=== PATIENT | male | born 1960 | race Caucasian/White ===

== ENCOUNTER 2017-06-19 12:31 | Emergency (ER) | payer OTHER ==
[2017-06-19] MEDS ORDERED: Ketorolac INJ* 30 MG/ML 1 ML VIAL IV ONE (13:24)
[2017-06-19] MEDS ORDERED: Metoclopramide IV* 5 MG/ML 2 ML VIAL IV ONE (13:24)
[2017-06-19] MEDS ORDERED: NS 0.9% 1000 ML* 1,000 ML IV ONE (13:24)
[2017-06-19] MEDS ORDERED: diPHENhydraMINE IV* 50 MG/ML 1 ml VIAL (BENADRYL) IV ONE (13:24)
[2017-06-19 13:45] LABS: ABS Basophils 0 10^3/ul (0-0.2); ABS Eosinophils 0.2 10^3/ul (0-0.6); ABS Lymphocytes 0.9 10^3/ul (1.0-4.8); ABS Monocytes 0.9 10^3/ul (0-0.8); ABS Neutrophils 3.4 10^3/ul (1.5-7.7); ABS Nucleated RBC 0 10^3/ul; Eosinophil % 3.5 % (0-6); Hematocrit 43 % (42-52); Lymphocyte % 17.1 % (25-47); Mean Corpuscular HGB Conc 35 g/dl (31-36); Mean Corpuscular Hemoglobin 32 pg (27-31); Mean Corpuscular Volume 90 fL (80-94); Mean Platelet Volume 7 um3 (7.4-10.4); Nucleated Red Blood Cells % 0; Platelet Count 223 10^3/ul (150-450); Red Blood Count 4.75 10^6/ul (4.0-5.4); Red Cell Distribution Width 13 % (10.5-15); White Blood Count 5.4 10^3/ul (3.5-10.8)
[2017-06-19 13:59] LABS: EGFR Non-African American 82.3 (>60)
--- NOTE | 2017-06-19 14:00 | RAD ---
HISTORY: Headache, lung cancer COMPARISONS: MRI dated November 21, 2015 TECHNIQUE: Multiple contiguous axial CT scans were obtained of the head without intravenous contrast. FINDINGS: HEMORRHAGE/INFARCT: There is no hemorrhage or acute infarct. MASSES/SHIFT: There is no mass or shift. EXTRA-AXIAL SPACES: There are no extra-axial fluid collections. SULCI AND VENTRICLES: The sulci and ventricles are normal in size and position for the patient's stated age. CEREBRUM: There are no focal parenchymal abnormalities. BRAINSTEM: There are no focal parenchymal abnormalities. CEREBELLUM: There are no focal parenchymal abnormalities. VESSELS: The vessels are grossly normal. PARANASAL SINUSES: The paranasal sinuses are clear. ORBITS: The orbits are unremarkable. BONES AND SOFT TISSUE: No bone or soft tissue abnormalities are noted. OTHER: None IMPRESSION: NO ACUTE INTRACRANIAL PATHOLOGY.
[2017-06-19 14:34] LABS: INR 0.95 (0.77-1.02)
[2017-06-19 17:04] VITALS: BP 110/90
--- NOTE | 2017-06-20 12:44 | ED ---
Honey Paul Thomas, scribed for Savage Randle MD on 06/19/17 at 1335 . Headache - HPI Summary HPI Summary: This patient is a 56 year old M presenting to [facility] accompanied by with a chief complaint of severe headaches since 4 days ago. The patient rates the pain 6/10 in severity, which began after a straining bowel movement. The headache is described as pulsating and is located in the front of his head. Symptoms aggravated and alleviated by nothing. Patient reports intermittent elevated blood pressure (up to 180/10) and intermittent blurred vision in the left eye described as waviness. Patient denies nausea and vomiting. Past medical history includes lung cancer with brain metastases. - History Of Current Complaint Chief Complaint: EDHeadache Stated Complaint: HEADACHE/CHEST DISCOMFORT Time Seen by Provider: 06/19/17 12:58 Hx Obtained From: Patient Onset/Duration: Gradual Onset, Started days ago - 4, Still Present Currently Pain Is: Current Pain Scale(0-10)= - 6, Severe Timing: Constant Character: Throbbing Location of Headache: Frontal Aggravating Factor: Nothing Allevating Factors: Nothing Associated Signs And Symptoms: Other (Noted In Comments) - Patient reports elevated BP and intermittent blurred vision in the left eye described as waviness. Patient denies nausea and vomiting. - Allergies/Home Medications Allergies/Adverse Reactions: Allergies Allergy/AdvReac Type Severity Reaction Status Date / Time No Known Allergies Allergy Verified 12/15/13 22:45 PMH/Surg Hx/FS Hx/Imm Hx Endocrine/Hematology History: Denies: Hx Diabetes, Hx Anemia Cardiovascular History: Reports: Hx Angina, Hx Coronary Artery Disease, Hx Hypercholesterolemia, Hx Hypertension, Hx Myocardial Infarction, Other Cardiovascular Problems/Disorders - 4 stents placed Denies: Hx Pacemaker/ICD, Hx Valvular Heart Disease Respiratory History: Reports: Other Respiratory Problems/Disorders Denies: Hx Asthma, Hx Chronic Obstructive Pulmonary Disease (COPD) GI History: Reports: Other GI Disorders - anal fissure with blood stool Denies: Hx Jaundice History: Denies: Hx Renal Disease Sensory History: Denies: Hx Hearing Aid Psychiatric History: Denies: Hx Panic Disorder - Cancer History Cancer Type, Location and Year: LUNG CARCINOMA Hx Chemotherapy: Yes - 2 YRS AGO Hx Radiation Therapy: Yes - A YR AGO - Surgical History Surgery Procedure, Year, and Place: Hernia Repair,. cardiac stents 4 PROMUS PE CLEARED FOR UP TO 720 G/CM PER [facility] RIGHT UPPER LOBE RIGHT - LOBECTOMY [facility]. POWER PORT. S/P GAMMA KNIFE - Immunization History Date of Tetanus Vaccine: unknown Infectious Disease History: No Infectious Disease History: Denies: Traveled Outside the [place] in Last 30 Days - Family History Known Family History: Positive: Cardiac Disease - Social History Alcohol Use: Rare Substance Use Type: Reports: None Smoking Status (MU): Former Smoker Review of Systems Negative: Fever Positive: Blurred Vision Negative: Vomiting, Nausea Positive: Headache All Other Systems Reviewed And Are Negative: Yes Physical Exam - Summary Physical Exam Summary: Appearance: The patient is well-nourished in no acute distress and in no acute pain. Skin: The skin is warm and dry and skin color reflects adequate perfusion. HEENT: The head is normocephalic and atraumatic. The pupils are equal and reactive. The conjunctivae are clear and without drainage. Fundi are sharp and there is no sign of hemorrhage. Nares are patent and without drainage. Mouth reveals moist mucous membranes and the throat is without erythema and exudate. The external ears are intact. The ear canals are patent and without drainage. The tympanic membranes are intact. Neck: the neck is supple with full range of motion and non-tender. There are no carotid bruits. There is no neck vein distension. Respiratory: Chest is non-tender. Lungs are clear to auscultation and breath sounds are symmetrical and equal. Cardiovascular: Heart is regular rate and rhythm. There is no murmur or rub auscultated. There is no peripheral edema and pulses are symmetrical and equal. Abdomen: The abdomen is soft and non-tender. There are normal bowel sounds heard in all four quadrants and there is no organomegaly palpated. Musculoskeletal: There is no back tenderness noted. Extremities are non-tender with full range of motion. There is good capillary refill. There is no peripheral edema or calf tenderness elicited. Neurological: Patient is alert and oriented to person, place and time. The patient has symmetrical motor strength in all four extremities. Cranial nerves are grossly intact. Deep tendon reflexes are symmetrical and equal in all four extremities. Psychiatric: The patient has an appropriate affect and does not exhibit any anxiety or depression. Triage Information Reviewed: Yes Vital Signs On Initial Exam: Initial Vitals Temp Pulse Resp BP Pulse Ox 97.5 F 58 18 127/75 94 06/19/17 12:35 06/19/17 12:35 06/19/17 12:35 06/19/17 12:35 06/19/17 12:35 Vital Signs Reviewed: Yes Diagnostics - Vital Signs Vital Signs Temp Pulse Resp BP Pulse Ox 06/19/17 12:35 97.5 F 58 18 127/75 94 - Laboratory Lab Results: Lab Results 06/19/17 06/19/17 06/19/17 Range/Units 13:35 13:35 13:35 WBC 5.4 (3.5-10.8) 10^3/ul RBC 4.75 (4.0-5.4) 10^6/ul Hgb 15.0 (14.0-18.0) g/dl Hct 43 (42-52) % MCV 90 (80-94) fL MCH 32 H (27-31) pg MCHC 35 (31-36) g/dl RDW 13 (10.5-15) % Plt Count 223 (150-450) 10^3/ul MPV 7 L (7.4-10.4) um3 Neut % (Auto) 61.6 (38-83) % Lymph % (Auto) 17.1 L (25-47) % [place] % (Auto) 17.4 H (1-9) % Eos % (Auto) 3.5 (0-6) % Baso % (Auto) 0.4 (0-2) % Absolute Neuts (auto) 3.4 (1.5-7.7) 10^3/ul Absolute Lymphs (auto) 0.9 L (1.0-4.8) 10^3/ul Absolute Monos (auto) 0.9 H (0-0.8) 10^3/ul Absolute Eos (auto) 0.2 (0-0.6) 10^3/ul Absolute Basos (auto) 0 (0-0.2) 10^3/ul Absolute Nucleated RBC 0 10^3/ul Nucleated RBC % 0 INR (Anticoag Therapy) 0.95 (0.77-1.02) Sodium 135 (133-145) mmol/L Potassium 4.0 (3.5-5.0) mmol/L Chloride 102 (101-111) mmol/L Carbon Dioxide 28 (22-32) mmol/L Anion Gap 5 (2-11) mmol/L BUN 17 (6-24) mg/dL Creatinine 0.95 (0.67-1.17) mg/dL Est GFR ( Amer) 105.9 (>60) Est GFR (Non-Af Amer) 82.3 (>60) BUN/Creatinine Ratio 17.9 (8-20) Glucose 107 H (70-100) mg/dL Calcium 9.3 (8.6-10.3) mg/dL Total Bilirubin 0.50 (0.2-1.0) mg/dL AST 25 (13-39) U/L ALT 40 (7-52) U/L Alkaline Phosphatase 56 (34-104) U/L Total Protein 7.3 (6.4-8.9) g/dL Albumin 4.0 (3.2-5.2) g/dL Globulin 3.3 (2-4) g/dL Albumin/Globulin Ratio 1.2 (1-3) Result Diagrams: 06/19/17 13:35 06/19/17 13:35 Lab Statement: Any lab studies that have been ordered have been reviewed, and results considered in the medical decision making process. - CT Brain CT Interpretation Completed By: Radiologist - NO ACUTE INTRACRANIAL PATHOLOGY. ED physician has reviewed this radiology report. - EKG 1242 Cardiac Rate: Bradycardia EKG Rhythm: Sinus Rhythm - 57 BPM EKG Interpretation: First degree heart block Headache Course/Dx - Course Course Of Treatment: Mr. aCldwell presented with a 3-4 day frontal, pulsating LONGORIA that started when he was straining his bowels. He initially had some blurred , wavy vision in his left eye but that has since gone away. He is worried about his blood pressure as it has been running high so he has been taking 1 1/2 of his 25 mg losartan instead of 1 a day. He has a history of brain mets although he has been in remission. Labs and a CT were fine here and his LONGORIA completely resolved with a 'migraine cocktail' of IV NS, ketorolac, diphenhydramine, and metoclopramide. Hiss blood pressure varied some here but generally ran low. This seemed like a vascular LONGORIA to me and I think that made his BP go up rather than vice versa. I recommended he go back to the 25 mgs of losartan and F/U closely with Dr. Soria. - Diagnoses Provider Diagnoses: Headache, HTN (hypertension) - Physician Notifications Discussed Care Of Patient With: Haris Colby Time Discussed With Above Provider: 16:25 Instructed by Provider To: Other - Dr. Colby, interventional cardiology, recommends that the patient have outpatient follow up for BP control. Discharge - Discharge Plan Condition: Stable Disposition: HOME Patient Education Materials: Hypertension (ED), General Headache (ED) Referrals: Aki Soria MD [Primary Care Provider] - 3 Days Additional Instructions: Follow up with Dr. Soria in the next couple of days. Take your Losartan as prescribed. The documentation as recorded by the Honey conroy Thomas accurately reflects the service I personally performed and the decisions made by me, Savage Randle MD.
== END 2017-06-19 17:03 | disposition home or self-care (01) ==
LOC: ED 12:31
DX: R51 Headache (principal); I10 Essential (primary) hypertension; Z85.841 Personal history of malignant neoplasm of brain; Z85.118 Personal history of other malignant neoplasm of bronchus and lung; Z87.891 Personal history of nicotine dependence
CPT/HCPCS: 36415; 70450; 80053; 85025; 85610; 93005; 96361; 96374; 96375; 99283; J1200; J1885; J2765

== ENCOUNTER 2018-10-26 16:10 | Inpatient (IN) | payer OTHER, MEDICARE ==
--- NOTE | 2018-10-26 16:28 | ED ---
GI/ HPI - HPI Summary HPI Summary: A 58 y/o male presents to [facility] with a chief complaint of diarrhea today. The patient notes that he is going through immunotherapy for lung cancer at [facility] in [place], [place]. His last infusion was three weeks ago. He reports that he has had a CT of his chest with contrast done already. The patient claims that he has had the side affects of muscle aches, joint pain, headaches and cough twice before while undergoing immunotherapy, but today he had watery diarrhea without blood. He denies any fever. At triage he rated his pain as a 7/10 in severity. He took Nexium at 10:00 today. SHx on inguinal hernia 40 years ago. The patient reports that his symptoms are usually treated with a round of steroids and a round of abx. - History of Current Complaint Chief Complaint: EDAbdPain Time Seen by Provider: 10/26/18 16:21 Stated Complaint: DIARRHEA/NAUSEA JOINT PAIN PER PT Hx Obtained From: Patient Onset/Duration: Started Hours Ago, Still Present Timing: Constant, Lasting Hours Severity: Moderate Current Severity: Moderate Pain Intensity: 7 - out of 10 Location of Pain: Diffuse Pain Characteristics: Cramping Associated Signs and Symptoms: Positive: Cough, Other: - muscle aches, joint pain, headache. Negative: Fever Aggravating Factor(s): Nothing Alleviating Factor(s): Nothing - Allergy/Home Medications Allergies/Adverse Reactions: Allergies Allergy/AdvReac Type Severity Reaction Status Date / Time No Known Allergies Allergy Verified 10/26/18 16:19 Home Medications: Home Medications Citalopram Hydrobromide [Citalopram HBr] 20 mg PO DAILY 10/26/18 [History Confirmed 10/26/18] Metoprolol Succinate XL TAB* [Toprol XL TAB*] 37.5 mg PO DAILY 10/26/18 [ History Confirmed 10/26/18] Naltrexone TAB* 4.5 mg PO DAILY 10/26/18 [History Confirmed 10/26/18] Nivolumab* [Opdivo] 240 mg IVPB SEE INSTRUCTIONS 10/26/18 [History Confirmed ] PMH/Surg Hx/FS Hx/Imm Hx Endocrine/Hematology History: Denies: Hx Diabetes, Hx Anemia Cardiovascular History: Reports: Hx Angina, Hx Coronary Artery Disease, Hx Hypercholesterolemia, Hx Hypertension, Hx Myocardial Infarction, Other Cardiovascular Problems/Disorders - 4 stents placed Denies: Hx Pacemaker/ICD, Hx Valvular Heart Disease Respiratory History: Reports: Other Respiratory Problems/Disorders Denies: Hx Asthma, Hx Chronic Obstructive Pulmonary Disease (COPD) GI History: Reports: Other GI Disorders - anal fissure with blood stool Denies: Hx Jaundice History: Denies: Hx Dialysis, Hx Renal Disease Sensory History: Denies: Hx Hearing Aid Psychiatric History: Denies: Hx Panic Disorder - Cancer History Cancer Type, Location and Year: LUNG CARCINOMA Hx Chemotherapy: Yes - 2 YRS AGO Hx Radiation Therapy: Yes - A YR AGO - Surgical History Surgery Procedure, Year, and Place: Hernia Repair,. cardiac stents 4 PROMUS PE CLEARED FOR UP TO 720 G/CM PER [employer] RIGHT UPPER LOBE RIGHT - LOBECTOMY [facility]. POWER PORT - OF 10/2018 REMOVED. 2018 S/P GAMMA KNIFE - Immunization History Date of Tetanus Vaccine: unknown Date of Influenza Vaccine: NO Infectious Disease History: No Infectious Disease History: Denies: Traveled Outside the US in Last 30 Days - Family History Known Family History: Positive: Cardiac Disease - Social History Alcohol Use: Rare Substance Use Type: Reports: None Smoking Status (MU): Former Smoker Review of Systems Negative: Fever Positive: Cough Positive: Diarrhea, Nausea Positive: Arthralgia, Myalgia Positive: Headache All Other Systems Reviewed And Are Negative: Yes Physical Exam - Summary Physical Exam Summary: VITAL SIGNS: Reviewed. GENERAL: Patient is a well-developed and nourished MALE who is lying comfortable in the stretcher. Patient is not in any acute respiratory distress. HEAD AND FACE: No signs of trauma. No ecchymosis, hematomas or skull depressions. No sinus tenderness. EYES: PERRLA, EOMI x 2, No injected conjunctiva, no nystagmus. EARS: Hearing grossly intact. Ear canals and tympanic membranes are within normal limits. MOUTH: Oropharynx within normal limits. NECK: Supple, trachea is midline, no adenopathy, no JVD, no carotid bruit, no c- spine tenderness, neck with full ROM. CHEST: Symmetric, no tenderness at palpation LUNGS: Decreased breath sounds bilaterally. CVS: Regular rate and rhythm, S1 and S2 present, no murmurs or gallops appreciated. ABDOMEN: Diffuse abdominal tenderness. No signs of distention. No rebound no guarding, and no masses palpated. Increased bowel sounds up top and decreased lower bowel sounds. EXTREMITIES: FROM in all major joints, no edema, no cyanosis or clubbing. NEURO: Alert and oriented x 3. No acute neurological deficits. Speech is normal and follows commands. SKIN: Dry and warm. Triage Information Reviewed: Yes Vital Signs On Initial Exam: Initial Vitals Temp Pulse Resp BP Pulse Ox 97.6 F 82 20 115/74 93 10/26/18 16:13 10/26/18 16:13 10/26/18 16:13 10/26/18 16:13 10/26/18 16:13 Vital Signs Reviewed: Yes Diagnostics - Vital Signs Vital Signs Temp Pulse Resp BP Pulse Ox 10/26/18 16:13 97.6 F 82 20 115/74 93 - Laboratory Result Diagrams: 10/27/18 06:47 10/27/18 06:47 Lab Statement: Any lab studies that have been ordered have been reviewed, and results considered in the medical decision making process. - Radiology CXR Radiology Interpretation Completed By: Radiologist Summary of Radiographic Findings: New opacity at the RIGHT mid to lower lung zone compared with the August 07, 2017 CT. This may represent pneumonia in the correct clinical context. Follow-up after therapy. suggested to exclude a neoplastic process. ED physician has revivewed this imaging report. abdomen x-ray Radiology Interpretation Completed By: Radiologist Summary of Radiographic Findings: Gas and fluid distention of the colon without gross radiographic evidence for mural. thickening of the colon or evidence for bowel obstruction. Consider. colitis/gastroenteritis. ED physician has reviewed this imaging report. Re-Evaluation - Re-Evaluation First Eval Re-Evaluation Time: 18:38 Change: Unchanged Comment: Discussed results and plan for admission. GIGU Course/Dx - Course Assessment/Plan: A 58 y/o male presents to [facility] with a chief complaint of diarrhea today. The patient notes that he is going through immunotherapy for lung cancer at [facility] in [place], [place]. His last infusion was three weeks ago. He reports that he has had a CT of his chest with contrast done already. The patient claims that he has had the side effects of muscle aches, joint pain, headaches and cough twice before while undergoing immunotherapy, but today he had watery diarrhea without blood. He denies any fever. At triage he rated his pain as a 7/10 in severity. He took Nexium at 10:00 today. SHx on inguinal hernia 40 years ago. The patient reports that his symptoms are usually treated with a round of steroids and a round of abx. In the ED course the patient was given IV fluids, Zofran for nausea and vomiting, morphine for the pain. Blood test results without any significant abnormality except for creatinine 1.26, glucose 120, magnesium is 1.7, and CRP is 42.1. CXR impression: new opacity of the right mid to lower lung zone compared with October 07, 2017. This may represent pneumonia in the correct clinical setting. Follow up after therapy suggested to exclude a neoplastic process. Abdominal X Ray impression: Gastrointestinal fluid distention of the colon without gross radiographic evidence for mural thickening of the colon or evidence of bowel obstruction. Consider colitis versus gastroenteritis. Patient was placed in Rocephin and azithromycin and will continue with IV fluids. At this point I discussed my physical exam and findings with Dr. Mcconnell from the hospital services was accepted the patient for admission. - Diagnoses Provider Diagnoses: Pneumonia, Colitis - Physician Notifications Discussed Care Of Patient With: Merline Mcconnell Time Discussed With Above Provider: 18:35 Instructed by Provider To: Admit As Inpatient Discharge - Sign-Out/Discharge Documenting (check all that apply): Patient Departure - admit Patient Received Moderate/Deep Sedation with Procedure: No - Discharge Plan Condition: Fair Disposition: ADMITTED TO [facility] - Billing Disposition and Condition Condition: FAIR Disposition: Admitted to [facility] - Attestation Statements Document Initiated by Santhosh: Yes Documenting Scribe: Haris Traylor Provider For Whom Santhosh is Documenting (Include Credential): Filiberto Corea MD Scribe Attestation: I, Haris Traylor scribed for Filiberto Corea MD on 10/27/18 at 0811. Scribe Documentation Reviewed: Yes Provider Attestation: The documentation as recorded by the Haris conroy accurately reflects the service I personally performed and the decisions made by me, Filiberto Corea MD Status of Scribe Document: Viewed
[2018-10-26] MEDS ORDERED: Al Hydrox/Mg Hydrox/Simet LIQ* 30 ML UDC PO ONE (16:37)
[2018-10-26] MEDS ORDERED: Morphine 4 MG/ML VIAL (1 ml) 4 MG/ML VIAL IV ONE (16:37)
[2018-10-26] MEDS ORDERED: Lidocaine 2% VISCOUS* 15 ML UDC PO ONE (16:37)
[2018-10-26] MEDS ORDERED: Ondansetron INJ* 2 MG/ML VIAL IV ONE (16:37)
[2018-10-26] MEDS: NS 0.9% 1000 ML** 2,000 ML IV ONE ×2 (17:21→18:51)
[2018-10-26 17:23] LABS: ABS Eosinophils 0.1 10^3/ul (0-0.6); ABS Lymphocytes 0.3 10^3/ul (1.0-4.8); ABS Monocytes 0.6 10^3/ul (0-0.8); ABS Neutrophils 7.5 10^3/ul (1.5-7.7); Hematocrit 46 % (42-52); Hemoglobin 15.8 g/dL (14.0-18.0); Lymphocyte % 3.8 %; Mean Corpuscular HGB Conc 35 g/dL (31-36); Mean Corpuscular Hemoglobin 31 pg (27-31); Mean Corpuscular Volume 90 fL (80-94); Mean Platelet Volume 6.6 fL (7.4-10.4); Platelet Count 164 10^3/uL (150-450); Red Blood Count 5.05 10^6 /uL (4.18-5.48); Red Cell Distribution Width 14 % (10.5-15); White Blood Count 8.5 10^3/uL (3.5-10.8)
[2018-10-26 17:44] LABS: Albumin 4.6 g/dL (3.2-5.2); Albumin/Globulin Ratio 1.3 (1-3); BUN/Creatinine Ratio 18.3 (8-20); C Reactive Protein 42.15 mg/L (<8.01); Calcium 9.2 mg/dL (8.6-10.3); EGFR African American 71.4 (>60); Globulin 3.5 g/dL (2-4); Magnesium 1.7 mg/dL (1.9-2.7); Potassium 3.9 mmol/L (3.5-5.0); Total Bilirubin 0.7 mg/dL (0.2-1.0); Total Protein 8.1 g/dL (6.4-8.9)
[2018-10-26] MEDS ORDERED: cefTRIAXone(*) 1 GM in NS 0.9% 50 ML* 50 ML IVPB ONE (18:32)
[2018-10-26] MEDS ORDERED: Azithromycin 500 mg/250 ml NS 500 MG/250 ML BAG IVPB ONE (18:32)
[2018-10-26] MEDS ORDERED: Ondansetron INJ* 2 MG/ML VIAL IV PRN (19:43)
[2018-10-26] MEDS ORDERED: NS 0.9% 1000 ML** 1,000 ML IV SCH (19:45)
[2018-10-26 19:48] LABS: Urine Appearance Clear; Urine Bacteria Absent (Absent); Urine Bilirubin Negative (Negative); Urine Blood 2+ (Negative); Urine Color Yellow; Urine Glucose Negative (Negative); Urine Ketones Negative (Negative); Urine Nitrite Negative (Negative); Urine Protein Negative (Negative); Urine Red Blood Cell 3+(>10/hpf) (Absent); Urine Specific Gravity 1.019 (1.010-1.030); Urine Urobilinogen Negative (Negative); Urine White Blood Cell Trace(0-5/hpf) (Absent)
[2018-10-26] MEDS ORDERED: Piperacillin/Tazobac ADVAN(*) 3.375 GM in NS 0.9% 100 ML* 100 ML IVPB ONE ×2 (20:20→22:30)
[2018-10-26] MEDS ORDERED: Vancomycin(*) 1,500 MG in NS 0.9% 250 ML* 250 ML IVPB SCH (20:22)
[2018-10-26] MEDS ORDERED: Acetaminophen TAB* 325 MG PO PRN (20:26)
[2018-10-26] MEDS ORDERED: Iodixanol* (CONTRAST) 320 MG/ML 100 ML SDV IV ONE (20:33)
--- NOTE | 2018-10-26 21:41 | HP ---
CC: Dr. Aki Soria; Dr. Rachel Bruner* HISTORY AND PHYSICAL: DATE OF ADMISSION: 10/26/18 PRIMARY CARE PROVIDER: Dr. Aki Soria. ONCOLOGIST: Dr. Rachel Bruner in at [place], [place]. ATTENDING PHYSICIAN: Dr. Omid Jaramillo* (dictated by GILBERT Desouza). CHIEF COMPLAINT: 1. Diarrhea. 2. Abdominal cramps. 3. Chronic cough with change in characteristic - has become productive. HISTORY OF PRESENT ILLNESS: Mr. Caldwell is a 58-year-old male with a past medical history of lung cancer, status post chemo, lobectomy about 5 years ago, who has since been on Opdivo for the last approximately 3 years. His last treatment was 2 weeks ago on 10/09/18. The patient states with Opdivo typically he has had 2 bouts of pneumonitis and joint pain. His pneumonitis is treated with antibiotics and steroids. He also skips a treatment and this typically resolves it quickly. He presents to the ER today stating he ate a bowl of cereal last night, went to bed with nausea and heartburn. He woke up this morning and has since had diarrhea that he describes as large quantity liquid stools. This has occurred approximately 10 times daily. He denies recent antibiotic use. He denies eating questionable food or recent travel. He denies blood or mucus in the stools. He denies fevers, although he notes that he has had chills recently. He denies vomiting. He denies pain relief with bowel movements. He has decreased oral intake today stating he has been sticking to bananas and applesauce today. Also of note is that the patient does have a chronic cough. He states that today it has turned productive. Again, he denies fever, but he is noted to have an elevated temperature of 101.3 in the ER. Again noted, the patient had immunotherapy approximately 2 weeks ago and seemed to have tolerated it well. In the ER, the patient received Zofran, morphine, lidocaine, Maalox, ceftriaxone , and azithromycin. He also received 2 L of IV fluids. A full workup was done , which included chest x-ray that showed right mid to lower lung zone opacity. Abdominal x- ray was also performed, which showed possible colitis/ gastroenteritis without obstruction. Laboratory work was also performed. The hospitalist team was asked to evaluate the patient for admission. The patient has been on Opdivo q.2 weeks for over 2 years. He recently switched to q.6 week treatment times a few treatments. This is the first time that he has attempted to go 12 weeks without treatment, so there were 12 weeks between his 10/09/18 treatment and his previous treatment. PAST MEDICAL HISTORY: 1. Coronary artery disease with 4 stents in 2011. 2. Hypertension. 3. Hyperlipidemia. 4. Lung cancer, chemo, lobectomy approximately 5 years ago, followed by 3 years on Opdivo. PAST SURGICAL HISTORY: 1. Inguinal hernia approximately 40 years ago. 2. Pilonidal cyst approximately 12 years ago. 3. Lobectomy in 2013. HOME MEDICATIONS: 1. Aspirin EC 325 mg p.o. daily. 2. Atorvastatin 20 mg p.o. daily. 3. Citalopram hydrobromide 20 mg p.o. daily. 4. Clonazepam 0.5 mg p.o. at bedtime. 5. Losartan 25 mg p.o. daily. 6. Melatonin 5 mg p.o. at bedtime. 7. Metoprolol succinate XL 25 mg p.o. daily, add 12.5 mg p.o. p.r.n. hypertension. 8. Naltrexone 4.5 mg p.o. daily. 9. Nitroglycerin 0.4 mg sublingual q.5 minutes p.r.n. angina. 10. Nivolumab 240 mg IV piggyback q.12 weeks. ALLERGIES: No known drug allergies. FAMILY HISTORY: The patient states little is known about his family history. He believes his father may have from an [place]. SOCIAL HISTORY: The patient no longer smokes cigarettes. He quit in 2009. Prior to that, he had a 35-year history of smoking approximately 2 packs per day. He drinks alcohol approximately once per year. He lives with his . In the event that he is unable to make his own medical decisions, he appoints his , Xin Caldwell, phone number is [phone] or [phone] to his surrogate decision maker. REVIEW OF SYSTEMS: A 10-point review of systems was performed and all the pertinent positives and negatives are in the HPI, all other systems are negative. PHYSICAL EXAMINATION GENERAL: Mr. Caldwell is a well-developed, well-nourished, obese, ill-appearing middle aged man. He appears to be in discomfort and is grimacing. He is able to answer questions and communicate effectively. He is cooperative and pleasant. HEENT: Visual cook are grossly intact. Pupils are equally round and reactive to light. Extraocular movements are intact. Sclerae are without icterus. Hearing is grossly intact. Oral mucous membranes are dry. The pharynx is clear. RESPIRATORY: Symmetrical chest expansion without use of accessory muscles. Lungs are clear to auscultation bilaterally without rhonchi, wheezes, or rubs. CARDIOVASCULAR: Regular rate and rhythm with S1, S2 present without murmurs, rubs, clicks or gallops. There is no JVD. ABDOMEN: Abdomen is distended. Bowel sounds are intermittently hyperactive throughout. There is diffuse tenderness to palpation with negative Bailey's sign. Negative rebound tenderness. Negative psoas sign. Negative McBurney's sign. EXTREMITIES: Skin is warm and smooth bilaterally. There is no clubbing, cyanosis, or edema. Radial and pedal pulses are palpable. MUSCULOSKELETAL: Full range of motion without pain or deformities. NEURO: The patient is awake. He is alert and oriented x3. He is able to move all of his extremities. He has a steady gait with no impairments. DIAGNOSTIC STUDIES/LAB DATA: Abdominal x-ray 10/26/18, impression: Gas and fluid distention of the colon without gross radiographic evidence for mural thickening of the colon or evidence for bowel obstruction, consider colitis/ gastroenteritis. Chest x-ray on 10/26/18, impression: New opacity at the right mid to lower lung zone compared with 08/07/17 CT. This may represent pneumonia in the correct clinical contexts. Followup after therapy suggested to exclude a neoplastic process. WBC 8.5, RBC 5.05, HGB 15.8, HCT 46. Creatinine 1.26, glucose 120, lactic acid 0.8, magnesium 1.7. CRP 42.15. ASSESSMENT AND PLAN: Mr. Caldwell is a 58-year-old male with a past medical history of lung cancer, hypertension, hyperlipidemia, who presented to the ER today 2 weeks post Opdivo treatment with productive cough and diarrhea x1 day. The patient will be admitted for: 1. Productive cough. Chest x-ray shows new opacity at the right mid to lower lung zone. The patient notes that he does have a history of pneumonitis x1 with treatment with Opdivo. He is noted to be febrile with the productive cough and no leukocytosis. He has an elevated CRP. In the ER, he was treated with ceftriaxone and azithromycin. At this time, he will continue treatment with Zosyn and azithromycin. Oncology has been consulted and recommend treatment with the above antibiotics and monitor overnight. PRN Tylenol ordered for fever, pain, probiotic ordered. 2. Colitis. The patient had diarrhea greater than x10 today. He is noted to have stool negative for C. diff, positive for lactoferrin, with Shiga toxin 1 and 2 pending. He again is noted to be febrile. It is unknown if colitis is immuno mediated. Again, Oncology was consulted and recommend monitoring overnight with consideration for steroids the following day. Famotidine, pantoprazole, and Maalox had been ordered. Again, the patient is on Zosyn and azithromycin. The patient will be transferred to the services of Dr. Umanzor in the morning. Please notify him of the patient admission. Also note that I attempted contact with the patient's oncologist, Rachel Bruner, at [place], [place], but was unable to notify her of admission. Phone number is [phone]. The patient's identification number is [id number]. 3. Acute kidney injury. Creatinine is 1.26, which is elevated above the patient's baseline. This could be due to hypovolemia. It is also noted that Opdivo can cause kidney injury. We will continue to monitor for resolution as the patient will be placed on fluids overnight. 4. Lung cancer. The patient's last Opdivo treatment was 10/09/18. Attempt was made to notify Dr. Bruner at the patient's admission, but was unsuccessful. 5. Hypertension. Continue losartan and metoprolol. 6. Hyperlipidemia. Continue atorvastatin and aspirin. 7. FEN. Clear liquid diet, low residue advance as tolerated. IV fluids normal saline at 150 per hour with reassessment in the morning. 8. Code status is full code. 9. DVT prophylaxis. According to the DVT risk assessment, the patient scores 2 and is moderate risk. The patient will be placed on Lovenox 40 q.24 hours. TIME SPENT: Approximately 70 minutes was spent on this admission, greater than half that time was spent with the patient and his obtaining history, performing physical, and reviewing the plan of care. The case has been reviewed with my attending, Dr. Jaramillo, who is in agreement with the plan of care. GILBERT GUTIERREZ [id number]/CPS #: [id number]/CPS #: [id number] PEGGY
[2018-10-26 22:38] LABS: Erythrocyte Sed Rate 10 mm/Hr (0-19)
[2018-10-26] MEDS: Pantoprazole TAB * 40 MG TAB PO SCH (23:01)
[2018-10-26] MEDS: Famotidine TAB* 20 MG PO SCH (23:01)
[2018-10-26] MEDS: NS 0.9% 1000 ML** 1,000 ML IV SCH (23:46)
--- NOTE | 2018-10-27 02:01 | HP ---
HISTORY AND PHYSICAL: ADDENDUM: PHYSICAL EXAMINATION GENERAL: Mr. Caldwell is a well-developed, well-nourished, obese, ill-appearing middle aged man. He appears to be in discomfort and is grimacing. He is able to answer questions and communicate effectively. He is cooperative and pleasant. HEENT: Visual cook are grossly intact. Pupils are equally round and reactive to light. Extraocular movements are intact. Sclerae are without icterus. Hearing is grossly intact. Oral mucous membranes are dry. The pharynx is clear. RESPIRATORY: Symmetrical chest expansion without use of accessory muscles. Lungs are clear to auscultation bilaterally without rhonchi, wheezes, or rubs. CARDIOVASCULAR: Regular rate and rhythm with S1, S2 present without murmurs, rubs, clicks or gallops. There is no JVD. ABDOMEN: Abdomen is distended. Bowel sounds are intermittently hyperactive throughout. There is diffuse tenderness to palpation with negative Bailey's sign. Negative rebound tenderness. Negative psoas sign. Negative McBurney's sign. EXTREMITIES: Skin is warm and smooth bilaterally. There is no clubbing, cyanosis, or edema. Radial and pedal pulses are palpable. MUSCULOSKELETAL: Full range of motion without pain or deformities. NEURO: The patient is awake. He is alert and oriented x3. He is able to move all of his extremities. He has a steady gait with no impairments. DIAGNOSTIC STUDIES/LAB DATA: Abdominal x-ray 10/26/18, impression: Gas and fluid distention of the colon without gross radiographic evidence for mural thickening of the colon or evidence for bowel obstruction, consider colitis/ gastroenteritis. Chest x-ray on 10/26/18, impression: New opacity at the right mid to lower lung zone compared with 08/07/17 CT. This may represent pneumonia in the correct clinical contexts. Followup after therapy suggested to exclude a neoplastic process. WBC 8.5, RBC 5.05, HGB 15.8, HCT 46. Creatinine 1.26, glucose 120, lactic acid 0.8, magnesium 1.7. CRP 42.15. ASSESSMENT AND PLAN: Mr. Caldwell is a 58-year-old male with a past medical history of lung cancer, hypertension, hyperlipidemia, who presented to the ER today 2 weeks post Opdivo treatment with productive cough and diarrhea x1 day. The patient will be admitted for: 1. Productive cough. Chest x-ray shows new opacity at the right mid to lower lung zone. The patient notes that he does have a history of pneumonitis x1 with treatment with Opdivo. He is noted to be febrile with the productive cough and no leukocytosis. He has an elevated CRP. In the ER, he was treated with ceftriaxone and azithromycin. At this time, he will continue treatment with Zosyn and azithromycin. Oncology has been consulted and recommend treatment with the above antibiotics and monitor overnight. PRN Tylenol ordered for fever, pain, probiotic ordered. 2. Colitis. The patient had diarrhea greater than x10 today. He is noted to have stool negative for C. diff, positive for lactoferrin, with Shiga toxin 1 and 2 pending. He again is noted to be febrile. It is unknown if colitis is immuno mediated. Again, Oncology was consulted and recommend monitoring overnight with consideration for steroids the following day. Famotidine, pantoprazole, and Maalox had been ordered. Again, the patient is on Zosyn and azithromycin. The patient will be transferred to the services of Dr. Umanzor in the morning. Please notify him of the patient admission. Also note that I attempted contact with the patient's oncologist, Rachel Bruner, at [facility] in [place], [place], but was unable to notify her of admission. Phone number is [phone]. The patient's identification number is [id number]. 3. Acute kidney injury. Creatinine is 1.26, which is elevated above the patient's baseline. This could be due to hypovolemia. It is also noted that Opdivo can cause kidney injury. We will continue to monitor for resolution as the patient will be placed on fluids overnight. 4. Lung cancer. The patient's last Opdivo treatment was 10/09/18. Attempt was made to notify Dr. Bruner at the patient's admission, but was unsuccessful. 5. Hypertension. Continue losartan and metoprolol. 6. Hyperlipidemia. Continue atorvastatin and aspirin. 7. FEN. Clear liquid diet, low residue advance as tolerated. IV fluids normal saline at 150 per hour with reassessment in the morning. 8. Code status is full code. 9. DVT prophylaxis. According to the DVT risk assessment, the patient scores 2 and is moderate risk. The patient will be placed on Lovenox 40 q.24 hours. TIME SPENT: Approximately 70 minutes was spent on this admission, greater than half that time was spent with the patient and his obtaining history, performing physical, and reviewing the plan of care. The case has been reviewed with my attending, Dr. Jaramillo, who is in agreement with the plan of care. GILBERT GUTIERREZ [id number]/[facility] #: [id number] MTDTeodoro
[2018-10-27] MEDS ORDERED: Zosyn per Pharmacy* NOTE FOLLOW UP PRN (03:27)
[2018-10-27] MEDS ORDERED: ZOSYN 3.375 GM Q8H per EXTENDED INFUSION IVPB SCH ×2 (03:30)
[2018-10-27] MEDS: ZOSYN 3.375 GM Q8H per EXTENDED INFUSION IVPB SCH ×6 (05:00→20:34)
[2018-10-27] MEDS: NS 0.9% 1000 ML** 1,000 ML IV SCH (06:44)
[2018-10-27 07:15] LABS: ABS Eosinophils 0.1 10^3/ul (0-0.6); ABS Lymphocytes 0.5 10^3/ul (1.0-4.8); ABS Monocytes 0.9 10^3/ul (0-0.8); ABS Neutrophils 4.4 10^3/ul (1.5-7.7); Eosinophil % 2.5 %; Hematocrit 38 % (42-52); Hemoglobin 13.2 g/dL (14.0-18.0); Lymphocyte % 8.9 %; Mean Corpuscular HGB Conc 35 g/dL (31-36); Mean Corpuscular Hemoglobin 32 pg (27-31); Mean Corpuscular Volume 91 fL (80-94); Mean Platelet Volume 6.9 fL (7.4-10.4); Platelet Count 123 10^3/uL (150-450); Red Blood Count 4.15 10^6 /uL (4.18-5.48); Red Cell Distribution Width 13 % (10.5-15)
[2018-10-27 07:38] LABS: Albumin 3.5 g/dL (3.2-5.2); Albumin/Globulin Ratio 1.3 (1-3); BUN/Creatinine Ratio 15.5 (8-20); Calcium 7.3 mg/dL (8.6-10.3); EGFR African American 90.1 (>60); EGFR Non-African American 74.4 (>60); Globulin 2.6 g/dL (2-4); Potassium 3.4 mmol/L (3.5-5.0); Total Bilirubin 0.8 mg/dL (0.2-1.0); Total Protein 6.1 g/dL (6.4-8.9)
[2018-10-27] MEDS: Famotidine TAB* 20 MG PO SCH (08:42)
[2018-10-27] MEDS: Citalopram TAB* 20 MG PO SCH (08:42)
[2018-10-27] MEDS: Pantoprazole TAB * 40 MG TAB PO SCH (08:42)
[2018-10-27] MEDS: Metoprolol Succinate XL TAB* 25 MG PO SCH (08:42)
[2018-10-27] MEDS: NALTREXONE 4.5 MG PO SCH (08:42)
[2018-10-27] MEDS: Lactobacillus Acidophilus* 1 TAB PO SCH (08:43)
[2018-10-27] MEDS ORDERED: Losartan TAB* 25 MG PO SCH (09:00)
[2018-10-27] MEDS ORDERED: Atorvastatin* 20 MG TAB PO SCH (09:00)
[2018-10-27] MEDS ORDERED: Metoprolol Succinate XL TAB* 25 MG PO SCH (09:00)
[2018-10-27] MEDS ORDERED: SIMETHICONE SUSP* ORALSYR 66.66 MG/ML PO PRN (10:41)
--- NOTE | 2018-10-27 10:41 | PN ---
Progress Note - Progress Note Date of Service: 10/27/18 SOAP: Subjective: []Presented with 36 hrs of profuse diarrhea, > 10 liquid BM per day, abdomina pain, fever, diffuse join pain and worse hearburn has ever had. He has cough and some SOB. On presentation had increased Cr and low blood pressure. CT chest with possible infiltrate and treated with antibiotics and fluids. Diarrhea continued over night. Cancer history: Diagnosed 2014 with lung cancer, surgery. Recurrence in 2016 to ribs, liver, chest wall. XRT to painful chest wall lesion. Seen by Dr. Rosario in 2016. Elected to enter clinical trial of Nivolumab 240 mg IV q 2 weeks. Has now been on Nivolumab for nearly 3 years. Tolerated well and has started to take infusion less frequently. Treated on 10/09/18, prior to that therapy in July. Reports tolerating immunotherapy well in the past. Has had G1-2 pneumonitis in the past Rx steroids, no colitis. Mild fatigue for several days after treatment. Reports on therapy disease decreased by 70%, stable > 1 yr. Acetaminophen (Tylenol Tab*) 650 mg PO Q4H PRN PRN Reason: PAIN or FEVER Last Admin: 10/26/18 21:32 Dose: 650 mg Atorvastatin Calcium (Lipitor*) 20 mg PO 2100 [facility] Citalopram Hydrobromide (Celexa Tab*) 20 mg PO DAILY [facility] Last Admin: 10/27/18 08:42 Dose: 20 mg Clonazepam (Klonopin Tab(*)) 0.5 mg PO BEDTIME [facility] Enoxaparin Sodium (Lovenox(*)) 40 mg SUBCUT Q24H [facility] Last Admin: 10/27/18 00:00 Dose: 40 mg Azithromycin 250 mg/ Sodium (Chloride) 250 mls @ 250 mls/hr IVPB Q24H [facility] Stop: 10/30/18 19:29 Piperacillin Sod/Tazobactam (Sod 3.375 gm/ Sodium Chloride) 100 mls @ 25 mls/ hr IVPB Q8H [facility] Last Admin: 10/27/18 05:00 Dose: 25 mls/hr Potassium Chloride/Sodium Chloride (Ns 0.9% W/ 40 Meq Kcl 1000 Ml*) 1,000 mls @ 100 mls/hr IV PER RATE [facility] Lactobacillus Rhamnosus (Lactobacillus Acidophilus*) 1 tab PO DAILY [facility] Last Admin: 10/27/18 08:43 Dose: 1 tab Melatonin (Melatonin) 6 mg PO BEDTIME [facility] Methylprednisolone Sodium Succinate (Solu-Medrol 125mg *) 80 mg IV Q12H [facility] Metoprolol Succinate (Toprol Xl Tab*) 37.5 mg PO DAILY [facility] Last Admin: 10/27/18 08:42 Dose: 37.5 mg Naltrexone 4.5 Mg (Caps) 1 dose PO DAILY [facility]; Protocol Last Admin: 10/27/18 08:42 Dose: Not Given Ondansetron HCl (Zofran Inj*) 4 mg IV Q4H PRN PRN Reason: NAUSEA/VOMITING Pantoprazole Sodium (Protonix Tab*) 40 mg PO DAILY [facility] Last Admin: 10/27/18 08:42 Dose: 40 mg Pantoprazole Sodium (Protonix Iv*) 40 mg IV DAILY [facility] Pharmacy Consult (Zosyn Per Pharmacy*) 1 note FOLLOW UP . PRN PRN Reason: PER PROTOCOL Objective: [] Vital Signs Temp Pulse Resp BP Pulse Ox 98 F 65 21 101/66 96 10/27/18 09:20 10/27/18 09:20 10/27/18 09:20 10/27/18 09:20 10/27/18 09:20 HEENT: no thrush, no LAD CTA RRR s1s2 tachy +BS, mild distension, non tender, no rebound. obese, could not feel liver or spleen Ext no C/C/E MK: no Joint inflammation skin w/o rash Assessment: []58 year old on Nivolumab for NSLCC who appears to have immune mediated colitis , I suspect gastritis, possible mild bronchitis or immune pneumoitis and joint pain that I suspect is also secondary to inflammatory process. C Diff sent and is negative, viral titer pending as are cultures for stool pathogens. Given severity of symptoms will start steroids. Plan: []1. Immune Colitis/Gastritis - Methylprednisolone 80 mg IV BID (=Prednisoe 2 mg/k/d) - If not improved in 3 days, infiximab - Progressive pain, check CT 2. GERD. - Protonix 40 IV qd - Simethicone 40 bid 3. Pnemoinia. Unclear, continue antibiotics at this time 4. HTN. low blood pressure today, hold Losartin 5. Lung cancer. Discussed halfway options of immunotherapy and observation. Will need to work through immune event first and then discuss, discussed pros and cons of stopping therapy. Will follow up with [facility] oncologist 6. Insomnia. On Klonopin, can try Trazadone 50 qhs.
[2018-10-27] MEDS: methylPREDNISolone 125 MG* 2 ML VIAL IV SCH ×2 (11:17→22:37)
[2018-10-27] MEDS: NS 0.9% w/ 40 Meq KCL 1000 ML* 1,000 ML IV SCH (11:55)
[2018-10-27 16:51] LABS: Magnesium 1.5 mg/dL (1.9-2.7)
[2018-10-27] MEDS: Azithromycin IV(*) 250 MG in NS 0.9% 250 ML* 250 ML IVPB SCH (17:50)
[2018-10-27] MEDS: Melatonin 3 MG TAB PO SCH (20:33)
[2018-10-27] MEDS: clonazePAM TAB(*) 0.5 MG PO SCH (20:33)
[2018-10-27] MEDS: traZODone TAB* 50 MG TAB PO PRN (20:34)
[2018-10-27] MEDS: Atorvastatin* 20 MG TAB PO SCH (20:45)
[2018-10-27] MEDS: Enoxaparin(*) 40 MG/0.4 ML SYR SUBCUT SCH ×2 (22:36)
[2018-10-28] MEDS: NS 0.9% w/ 40 Meq KCL 1000 ML* 1,000 ML IV SCH ×2 (02:53→19:15)
[2018-10-28] MEDS: ZOSYN 3.375 GM Q8H per EXTENDED INFUSION IVPB SCH ×6 (03:50→20:11)
[2018-10-28 06:24] LABS: Hematocrit 37 % (42-52); Hemoglobin 12.9 g/dL (14.0-18.0); Mean Corpuscular HGB Conc 34 g/dL (31-36); Mean Corpuscular Hemoglobin 31 pg (27-31); Mean Corpuscular Volume 91 fL (80-94); Mean Platelet Volume 6.7 fL (7.4-10.4); Platelet Count 143 10^3/uL (150-450); Red Blood Count 4.13 10^6 /uL (4.18-5.48); Red Cell Distribution Width 13 % (10.5-15); White Blood Count 6.6 10^3/uL (3.5-10.8)
[2018-10-28 06:38] LABS: Albumin 3.5 g/dL (3.2-5.2); Albumin/Globulin Ratio 1.3 (1-3); BUN/Creatinine Ratio 15.6 (8-20); Calcium 7.6 mg/dL (8.6-10.3); EGFR African American 105.2 (>60); Globulin 2.8 g/dL (2-4); Magnesium 1.7 mg/dL (1.9-2.7); Potassium 3.5 mmol/L (3.5-5.0); Total Bilirubin 0.5 mg/dL (0.2-1.0); Total Protein 6.3 g/dL (6.4-8.9)
[2018-10-28] MEDS: Lactobacillus Acidophilus* 1 TAB PO SCH (08:53)
[2018-10-28] MEDS: Metoprolol Succinate XL TAB* 25 MG PO SCH (08:53)
[2018-10-28] MEDS: Citalopram TAB* 20 MG PO SCH (08:54)
[2018-10-28] MEDS ORDERED: Pantoprazole IV* 40 MG IV SCH (09:00)
[2018-10-28] MEDS: NALTREXONE 4.5 MG PO SCH (09:18)
[2018-10-28] MEDS: Pantoprazole TAB * 40 MG TAB PO SCH (09:22)
[2018-10-28] MEDS: methylPREDNISolone 125 MG* 2 ML VIAL IV SCH ×2 (11:37→22:00)
[2018-10-28] MEDS: Azithromycin IV(*) 250 MG in NS 0.9% 250 ML* 250 ML IVPB SCH (17:53)
[2018-10-28] MEDS: clonazePAM TAB(*) 0.5 MG PO SCH (20:11)
[2018-10-28] MEDS: Melatonin 3 MG TAB PO SCH (20:11)
[2018-10-28] MEDS: Atorvastatin* 20 MG TAB PO SCH (20:11)
[2018-10-28] MEDS: Enoxaparin(*) 40 MG/0.4 ML SYR SUBCUT SCH (22:00)
[2018-10-28] MEDS: traZODone TAB* 50 MG TAB PO PRN (22:06)
[2018-10-29] MEDS: ZOSYN 3.375 GM Q8H per EXTENDED INFUSION IVPB SCH ×2 (03:57)
[2018-10-29 06:46] LABS: ABS Lymphocytes 0.5 10^3/ul (1.0-4.8); ABS Monocytes 0.4 10^3/ul (0-0.8); ABS Neutrophils 8.1 10^3/ul (1.5-7.7); Hematocrit 37 % (42-52); Hemoglobin 12.9 g/dL (14.0-18.0); Lymphocyte % 5.1 %; Mean Corpuscular HGB Conc 35 g/dL (31-36); Mean Corpuscular Hemoglobin 32 pg (27-31); Mean Corpuscular Volume 91 fL (80-94); Mean Platelet Volume 7.1 fL (7.4-10.4); Platelet Count 139 10^3/uL (150-450); Red Cell Distribution Width 14 % (10.5-15)
[2018-10-29 06:57] LABS: BUN/Creatinine Ratio 20.5 (8-20); Calcium 7.5 mg/dL (8.6-10.3); EGFR Non-African American 89.3 (>60); Magnesium 1.8 mg/dL (1.9-2.7); Potassium 3.7 mmol/L (3.5-5.0)
[2018-10-29] MEDS: NALTREXONE 4.5 MG PO SCH (07:39)
[2018-10-29] MEDS: Citalopram TAB* 20 MG PO SCH (07:41)
[2018-10-29] MEDS: Metoprolol Succinate XL TAB* 25 MG PO SCH (07:41)
[2018-10-29] MEDS: Lactobacillus Acidophilus* 1 TAB PO SCH (07:41)
[2018-10-29] MEDS: Pantoprazole TAB * 40 MG TAB PO SCH (07:41)
[2018-10-29] MEDS: methylPREDNISolone 125 MG* 2 ML VIAL IV SCH ×2 (10:18→21:47)
--- NOTE | 2018-10-29 12:04 | PN ---
Progress Note - Progress Note Date of Service: 10/29/18 SOAP: Subjective: []Feeling OK overall. Better than on admission. Stool has slowed down, but remains watery. Now with brown flecks. No longer tender. Denies cramping. Lots of gas and feels bloated. Has been eating well and no further gastritis complaints. Walking around unit. Breathing is fine. Rare cough, very small amt. of sputum. No SOB with walking around unit, but feels tired. Medications: Acetaminophen (Tylenol Tab*) 650 mg PO Q4H PRN PRN Reason: PAIN or FEVER Last Admin: 10/26/18 21:32 Dose: 650 mg Atorvastatin Calcium (Lipitor*) 20 mg PO 2100 [facility] Last Admin: 10/28/18 20:11 Dose: 20 mg Citalopram Hydrobromide (Celexa Tab*) 20 mg PO DAILY [facility] Last Admin: 10/29/18 07:41 Dose: 20 mg Clonazepam (Klonopin Tab(*)) 0.5 mg PO BEDTIME [facility] Last Admin: 10/28/18 20:11 Dose: 0.5 mg Enoxaparin Sodium (Lovenox(*)) 40 mg SUBCUT Q24H [facility] Last Admin: 10/28/18 22:00 Dose: 40 mg Potassium Chloride/Sodium Chloride (Ns 0.9% W/ 40 Meq Kcl 1000 Ml*) 1,000 mls @ 100 mls/hr IV PER RATE [facility] Last Admin: 10/28/18 19:15 Dose: 100 mls/hr Lactobacillus Rhamnosus (Lactobacillus Acidophilus*) 1 tab PO DAILY [facility] Last Admin: 10/29/18 07:41 Dose: 1 tab Melatonin (Melatonin) 6 mg PO BEDTIME [facility] Last Admin: 10/28/18 20:11 Dose: 6 mg Methylprednisolone Sodium Succinate (Solu-Medrol 125mg *) 80 mg IV Q12H [facility] Last Admin: 10/29/18 10:18 Dose: 80 mg Metoprolol Succinate (Toprol Xl Tab*) 37.5 mg PO DAILY [facility] Last Admin: 10/29/18 07:41 Dose: 37.5 mg Naltrexone 4.5 Mg (Caps) 1 dose PO DAILY [facility]; Protocol Last Admin: 10/29/18 07:39 Dose: Not Given Ondansetron HCl (Zofran Inj*) 4 mg IV Q4H PRN PRN Reason: NAUSEA/VOMITING Pantoprazole Sodium (Protonix Tab*) 40 mg PO DAILY [facility] Last Admin: 10/29/18 07:41 Dose: 40 mg Simethicone (Mylicon Drops* Oralsyr) 40 mg PO BID PRN PRN Reason: INDIGESTION Trazodone HCl (Desyrel Tab*) 50 mg PO BEDTIME PRN PRN Reason: INSOMNIA Last Admin: 10/28/18 22:06 Dose: 50 mg Objective: [] Vital Signs Temp Pulse Resp BP Pulse Ox 97.5 F 67 20 136/79 97 10/29/18 07:40 10/29/18 07:40 10/29/18 07:44 10/29/18 07:40 10/29/18 07:40 A&Ox3, EOMI, neuro grossly non-focal HRR, S1S2, no murmur noted LS clear bilat. throughout without wheeze or rhonchi +BS, abd. softly distended, non-tender BRODERICK without focal abnormality noted Laboratory Results - last 24 hr 10/29/18 10/29/18 06:01 06:01 WBC 9.0 RBC 4.10 L Hgb 12.9 L Hct 37 L MCV 91 MCH 32 H MCHC 35 RDW 14 Plt Count 139 L MPV 7.1 L Neut % (Auto) 90.1 Lymph % (Auto) 5.1 Newton % (Auto) 4.8 Eos % (Auto) 0.0 Baso % (Auto) 0.0 Absolute Neuts (auto) 8.1 H Absolute Lymphs (auto) 0.5 L Absolute Monos (auto) 0.4 Absolute Eos (auto) 0.0 Absolute Basos (auto) 0.0 Absolute Nucleated RBC 0.0 Nucleated RBC % 0.0 Sodium 141 Potassium 3.7 Chloride 111 Carbon Dioxide 23 Anion Gap 7 BUN 18 Creatinine 0.88 Est GFR ( Amer) 108.0 Est GFR (Non-Af Amer) 89.3 BUN/Creatinine Ratio 20.5 H Glucose 167 H Calcium 7.5 L Magnesium 1.8 L Assessment: []58 yo male with stage IV lung cancer very stable on Nivolumab (since 2015 when on trial) with recent change in schedule, last administered 10/16/18, admitted with severe immune mediated S/Es. He appears to be slowly improving with high dose steroids. Plan: []1. Colitis: slow improvement on Methylprednisone 80 mg IV BID (=2mg/kg/day) - if no marked improvement tomorrow AM start Infliximab 5mg/kg IV - OK to cont. to eat, enc. walking 2. Gastritis: marked improvement - cont. protonix with high dose steroids 3. Pneumonitis vs. PNA: does not appear infectious and has a history of mild pneumonitis with immunotherapy in the past (never required hospitalization per his report) - d/c abx. and monitor overnight 4. Lung cancer: immunotherapy on hold d/t need for prolonged steroid taper - f/u as outpatient to discuss further management Dispo: pending improvement in colitis, ongoing need for IV interventions
[2018-10-29] MEDS: NS 0.9% w/ 40 Meq KCL 1000 ML* 1,000 ML IV SCH ×2 (12:50→20:49)
[2018-10-29 15:19] LABS: Herpes Simplex Virus I IgG AB Positive (Negative); Herpes Simplex Virus II IgG AB Positive (Negative)
[2018-10-29] MEDS: Melatonin 3 MG TAB PO SCH (20:49)
[2018-10-29] MEDS: traZODone TAB* 50 MG TAB PO PRN (20:49)
[2018-10-29] MEDS: Atorvastatin* 20 MG TAB PO SCH (20:49)
[2018-10-29] MEDS: clonazePAM TAB(*) 0.5 MG PO SCH (20:49)
[2018-10-29] MEDS: Enoxaparin(*) 40 MG/0.4 ML SYR SUBCUT SCH (21:47)
[2018-10-30 06:35] LABS: ABS Lymphocytes 0.6 10^3/ul (1.0-4.8); ABS Monocytes 0.7 10^3/ul (0-0.8); ABS Neutrophils 9.1 10^3/ul (1.5-7.7); Hematocrit 37 % (42-52); Hemoglobin 12.9 g/dL (14.0-18.0); Lymphocyte % 5.5 %; Mean Corpuscular HGB Conc 35 g/dL (31-36); Mean Corpuscular Hemoglobin 32 pg (27-31); Mean Corpuscular Volume 90 fL (80-94); Mean Platelet Volume 7.1 fL (7.4-10.4); Nucleated Red Blood Cells % 0.1; Platelet Count 149 10^3/uL (150-450); Red Blood Count 4.08 10^6 /uL (4.18-5.48); Red Cell Distribution Width 14 % (10.5-15); White Blood Count 10.4 10^3/uL (3.5-10.8)
[2018-10-30 06:51] LABS: Albumin 3.4 g/dL (3.2-5.2); Albumin/Globulin Ratio 1.3 (1-3); BUN/Creatinine Ratio 22.2 (8-20); Calcium 7.4 mg/dL (8.6-10.3); EGFR African American 118.8 (>60); EGFR Non-African American 98.2 (>60); Globulin 2.6 g/dL (2-4); Magnesium 1.8 mg/dL (1.9-2.7); Total Bilirubin 0.5 mg/dL (0.2-1.0)
[2018-10-30] MEDS: Pantoprazole TAB * 40 MG TAB PO SCH (08:13)
[2018-10-30] MEDS: Lactobacillus Acidophilus* 1 TAB PO SCH (08:13)
[2018-10-30] MEDS: Metoprolol Succinate XL TAB* 25 MG PO SCH (08:13)
[2018-10-30] MEDS: Citalopram TAB* 20 MG PO SCH (08:13)
[2018-10-30] MEDS: NS 0.9% w/ 40 Meq KCL 1000 ML* 1,000 ML IV SCH ×2 (08:14→17:17)
[2018-10-30] MEDS: NALTREXONE 4.5 MG PO SCH (08:14)
[2018-10-30] MEDS: methylPREDNISolone 125 MG* 2 ML VIAL IV SCH ×2 (10:23→17:17)
[2018-10-30 15:10] LABS: EBV Capsid Ag IgG Ab Positive (Negative); EBV Capsid Ag IgM Ab Negative (Negative); Epstein-Barr Nuclear Antigen Positive (Negative)
[2018-10-30] MEDS: clonazePAM TAB(*) 0.5 MG PO SCH (21:09)
[2018-10-30] MEDS: Atorvastatin* 20 MG TAB PO SCH (21:10)
[2018-10-30] MEDS: Melatonin 3 MG TAB PO SCH (21:10)
[2018-10-30] MEDS: Enoxaparin(*) 40 MG/0.4 ML SYR SUBCUT SCH (21:10)
[2018-10-31] MEDS: NS 0.9% w/ 40 Meq KCL 1000 ML* 1,000 ML IV SCH (05:47)
[2018-10-31] MEDS: methylPREDNISolone 125 MG* 2 ML VIAL IV SCH (05:48)
[2018-10-31 06:54] LABS: BUN/Creatinine Ratio 21.8 (8-20); Calcium 7.9 mg/dL (8.6-10.3); EGFR African American 109.4 (>60); EGFR Non-African American 90.4 (>60)
[2018-10-31 07:50] LABS: Potassium 4.1 mmol/L (3.5-5.0)
[2018-10-31] MEDS: NALTREXONE 4.5 MG PO SCH (10:45)
[2018-10-31] MEDS: Metoprolol Succinate XL TAB* 25 MG PO SCH (10:45)
[2018-10-31] MEDS: Citalopram TAB* 20 MG PO SCH (10:45)
[2018-10-31] MEDS: Lactobacillus Acidophilus* 1 TAB PO SCH (10:45)
[2018-10-31 10:47] VITALS: BP 111/74
[2018-10-31] MEDS: Pantoprazole TAB * 40 MG TAB PO SCH (11:00)
== END 2018-10-31 11:40 | disposition home or self-care (01) | DRG 391 ==
LOC: ED 16:10 → MEDTELE 21:27
PROVIDERS: ADMIT Student in an Organized Health Care Education/Training Program; ATTEND Internal Medicine Hematology & Oncology
DX: K52.89 Other specified noninfective gastroenteritis and colitis (principal); J18.9 Pneumonia, unspecified organism; C34.90 Malignant neoplasm of unspecified part of unspecified bronchus or lung; N17.9 Acute kidney failure, unspecified; C78.7 Secondary malignant neoplasm of liver and intrahepatic bile duct; C79.51 Secondary malignant neoplasm of bone; K21.9 Gastro-esophageal reflux disease without esophagitis; F19.982 Other psychoactive substance use, unspecified with psychoactive substance-induced sleep disorder; T38.0X5A Adverse effect of glucocorticoids and synthetic analogues, initial encounter; I25.10 Atherosclerotic heart disease of native coronary artery without angina pectoris; K29.70 Gastritis, unspecified, without bleeding; E66.9 Obesity, unspecified; I10 Essential (primary) hypertension; E78.5 Hyperlipidemia, unspecified; Z90.2 Acquired absence of lung [part of]; Z82.49 Family history of ischemic heart disease and other diseases of the circulatory system; Z87.891 Personal history of nicotine dependence; Z95.5 Presence of coronary angioplasty implant and graft; Y92.9 Unspecified place or not applicable; Z92.21 Personal history of antineoplastic chemotherapy; Z92.3 Personal history of irradiation; Z68.33 Body mass index [BMI] 33.0-33.9, adult
CPT/HCPCS: 36415; 71046; 71260; 74019; 80048; 80053; 81003; 81015; 82550; 83605; 83630; 83690; 83735; 83880; 85025; 85027; 85652; 86140; 86664; 86665; 86695; 86696; 87040; 87045; 87046; 87086; 87493; 87497; 87899; 99232; 99233; 99284; A9270-GY; J0456; J0696; J1650; J2270; J2405; J2543; J2930; Q9967

== ENCOUNTER 2023-12-21 14:15 | Observation (INO) ==
[2023-12-21 15:32] LABS: ABS Basophils 0.1 10^3/uL (0.0-0.1); ABS Lymphocytes 0.9 10^3/uL (1.0-4.8); ABS Monocytes 0.6 10^3/uL (0.0-1.1); ABS Neutrophils 6.2 10^3/uL (1.5-7.6); ABS Nucleated RBC 0.01 10^3/ul; Eosinophil % 0.6 %; Hematocrit 31.5 % (38-53); Hemoglobin 10.5 g/dL (13.2-16.3); Lymphocyte % 11.2 %; Mean Corpuscular Hemoglobin 28.9 pg (27-33); Mean Corpuscular Hgb Conc 33.4 g/dL (31-36); Mean Corpuscular Volume 86.6 fL (80-97); Mean Platelet Volume 6.9 fL (7.5-11.2); Nucleated Red Blood Cells % 0.1 %/100WBC (0.0-0.8); Platelet Count 294 10^3/uL (150-450); Red Blood Count 3.64 10^6/uL (4.06-5.63); Red Cell Distribution Width 17.2 % (12-17); White Blood Count 7.7 10^3/uL (3.6-10.2)
[2023-12-21 15:38] LABS: INR 1.05 (0.83-1.13)
[2023-12-21 16:16] LABS: Albumin 3.8 g/dL (3.2-5.2); Albumin/Globulin Ratio 1.1 (1-3); Creatinine, Serum 0.83 mg/dL (0.67-1.17); Globulin 3.6 g/dL (2-4); Potassium 3.8 mmol/L (3.5-5.0); Total Bilirubin 0.3 mg/dL (0.2-1.0); Total Protein 7.4 g/dL (6.4-8.9)
[2023-12-21 17:03] LABS: High Sensitivity Troponin 1 Hr 14 pg/mL (<20)
[2023-12-21] MEDS ORDERED: fentaNYL Patch Check Q Shift NOTE SCH (19:00)
[2023-12-21] MEDS ORDERED: Naloxone Nasal Spray 4 MG/0.1 ML NASAL.SPR INTRANASAL PRN (19:45)
[2023-12-21] MEDS ORDERED: Polyethylene Glycol 3350 BTL 238 GM BTL PO PRN (19:47)
[2023-12-21] MEDS ORDERED: Polyethylene Glycol 3350 17 GM PACKET PO PRN (19:52)
[2023-12-21] MEDS ORDERED: Ondansetron ODT 4 mg TAB 4 MG TAB PO PRN (20:16)
[2023-12-21] MEDS: Lactulose 30 ml UDC PO SCH (21:32)
[2023-12-21] MEDS: Aspirin EC 81 mg TAB.EC (enteric coated) PO SCH (21:48)
[2023-12-21] MEDS: DULoxetine DR 60 mg CAP PO SCH (21:58)
[2023-12-21] MEDS: Lidocaine PATCH 5% PATCH TRANSDERM SCH (22:00)
[2023-12-22] MEDS: Iohexol 350 (CONTRAST) 500 ML MDV IV ONE (08:05)
[2023-12-22 15:57] LABS: Hematocrit 31.6 % (38-53); Hemoglobin 10.6 g/dL (13.2-16.3); Mean Corpuscular Hemoglobin 29.1 pg (27-33); Mean Corpuscular Hgb Conc 33.6 g/dL (31-36); Mean Corpuscular Volume 86.8 fL (80-97); Mean Platelet Volume 6.8 fL (7.5-11.2); Platelet Count 245 10^3/uL (150-450); Red Blood Count 3.64 10^6/uL (4.06-5.63); Red Cell Distribution Width 17.8 % (12-17); White Blood Count 5.9 10^3/uL (3.6-10.2)
[2023-12-22 16:57] LABS: Calcium 9.1 mg/dL (8.6-10.3); Creatinine, Serum 0.81 mg/dL (0.67-1.17); Magnesium 1.8 mg/dL (1.9-2.7); Phosphorus 4.1 mg/dL (2.5-5.0); Potassium 4.1 mmol/L (3.5-5.0); eGFR CKD-EPI 99.7 (>60)
[2023-12-22] MEDS: Enoxaparin 40 MG/0.4 ML SYR SUBCUT SCH (18:18)
[2023-12-22] MEDS: Magnesium Sulfate 2 gm BAG 2 GM/50 ML BAG IVPB ONE (18:24)
[2023-12-23 06:44] LABS: Hemoglobin 10.3 g/dL (13.2-16.3); Mean Corpuscular Hgb Conc 34.3 g/dL (31-36); Mean Corpuscular Volume 87.3 fL (80-97); Platelet Count 216 10^3/uL (150-450); Red Blood Count 3.44 10^6/uL (4.06-5.63); Red Cell Distribution Width 17.5 % (12-17); White Blood Count 5.1 10^3/uL (3.6-10.2)
[2023-12-23 07:26] LABS: Calcium 8.4 mg/dL (8.6-10.3); Creatinine, Serum 0.82 mg/dL (0.67-1.17); Magnesium 1.9 mg/dL (1.9-2.7); Phosphorus 4.2 mg/dL (2.5-5.0); Potassium 4.1 mmol/L (3.5-5.0); eGFR CKD-EPI 99.3 (>60)
[2023-12-23] MEDS ORDERED: Regadenoson 0.4 MG/5 ML SYRINGE ONE (08:35)
[2023-12-23] MEDS ORDERED: Aminophylline 25 MG/ML VIAL ONE (08:35)
[2023-12-23 17:24] VITALS: BP 116/73
[2023-12-24] MEDS ORDERED: fentaNYL PATCH 25 MCG/HR 1 PATCH TRANSDERM SCH (09:00)
== END 2023-12-23 17:24 | disposition home or self-care (01) ==
LOC: EDHOLD 14:15 → ED 14:15 → SUATTDRO 17:25 → EDHOLD 12-23 17:23
PROVIDERS: ADMIT Hospitalist; ATTEND Student in an Organized Health Care Education/Training Program

== ENCOUNTER 2024-03-26 01:27 | Inpatient (IN) ==
[2024-03-26 04:23] LABS: Hematocrit 24.3 % (38-53); Hemoglobin 8.1 g/dL (13.2-16.3); Mean Corpuscular Hemoglobin 27.3 pg (27-33); Mean Corpuscular Hgb Conc 33.5 g/dL (31-36); Mean Corpuscular Volume 81.5 fL (80-97); Red Blood Count 2.98 10^6/uL (4.06-5.63); White Blood Count 0.8 10^3/uL (3.6-10.2)
[2024-03-26 05:00] LABS: ALT 92 U/L (7-52); AST 56 U/L (13-39); Albumin 3.2 g/dL (3.2-5.2); Albumin/Globulin Ratio 1.1 (1-3); Alkaline Phosphatase 114 U/L (35-149); Anion Gap 7 mmol/L (2-16); Blood Urea Nitrogen 13 mg/dL (6-24); CO2 Carbon Dioxide 29 mmol/L (22-32); Calcium 8.7 mg/dL (8.6-10.3); Chloride 100 mmol/L (101-111); Creatinine, Serum 0.75 mg/dL (0.67-1.17); Globulin 2.8 g/dL (2-4); Glucose 101 mg/dL (70-100); Potassium 3.8 mmol/L (3.5-5.0); Sodium 136 mmol/L (135-145); Total Bilirubin 0.5 mg/dL (0.2-1.0)
[2024-03-26 05:40] LABS: ABS Eosinophils 0.1 10^3/uL (0.0-0.5); ABS Lymphocytes 0.4 10^3/uL (1.0-4.8); ABS Monocytes 0.2 10^3/uL (0.0-1.1); ABS Neutrophils 0.1 10^3/uL (1.5-7.6); Eosinophil % 12.1 %; Lymphocyte % 50.6 %; Mean Platelet Volume 6.6 fL (7.5-11.2); Nucleated Red Blood Cells % 0.3 %/100WBC (0.0-0.8); Platelet Count 89 10^3/uL (150-450)
[2024-03-26] MEDS: cefTRIAXone 1 gm/50 mL D5W 1 GM/50 ML BAG IV ONE (06:24)
[2024-03-26] MEDS: NS 0.9% 1000 ml BAG 1,000 ML IV ONE (06:54)
[2024-03-26] MEDS: Morphine 4 MG/ML VIAL (1 ml) IV ONE (08:29)
[2024-03-26] MEDS: HYDROmorphone 1 MG/1 ML SYRINGE IV SLOW PU ONE (16:37)
[2024-03-26] MEDS: Acetaminophen IV 1 GM/100ML 1,000 MG/100 ML BAG IV ONE (18:11)
[2024-03-26] MEDS: Cefepime 2 GM in Dextrose 2 GM/50 ML BAG IV ONE (18:43)
[2024-03-26] MEDS: Iohexol 300 (CONTRAST) 10 ML SDV IV ONE (21:28)
[2024-03-26] MEDS: Lactated Ringers 1000 ml BAG 1,000 ML IV SCH (22:27)
[2024-03-27 01:10] LABS: % Iron Saturation 6 % (15-55); .Transferrin 231 mg/dL (203-362); Iron 20 ug/dL (50-212); Total Iron Binding Capacity 323 mcg/dL (250-450); Unsaturated Iron Binding 303 ug/dL
[2024-03-27 01:32] LABS: Ferritin 157.7 ng/mL (24-336)
[2024-03-27 01:36] LABS: Folate > 20.00 ng/mL (5.90-24.80)
[2024-03-27 01:37] LABS: Vitamin B12 572 pg/mL (180-914)
[2024-03-27] MEDS: Cefepime 2 GM in Dextrose 2 GM/50 ML BAG IV SCH (02:28)
[2024-03-27 05:43] LABS: Urine Appearance Clear; Urine Bilirubin Negative (Negative); Urine Blood Negative (Negative); Urine Color Colorless; Urine Glucose Negative (Negative); Urine Ketones Negative (Negative); Urine Nitrite Negative (Negative); Urine Protein Negative (Negative); Urine Specific Gravity 1.016 (1.002-1.030); Urine Urobilinogen Negative (Negative); Urine pH 6.5 (5.0-8.0)
[2024-03-27 06:58] LABS: Albumin 3.1 g/dL (3.2-5.2); Albumin/Globulin Ratio 1.1 (1-3); Calcium 8.7 mg/dL (8.6-10.3); Creatinine, Serum 0.69 mg/dL (0.67-1.17); Globulin 2.8 g/dL (2-4); Magnesium 1.4 mg/dL (1.9-2.7); Potassium 3.7 mmol/L (3.5-5.0); Total Bilirubin 0.9 mg/dL (0.2-1.0); Total Protein 5.9 g/dL (6.4-8.9); eGFR CKD-EPI 104.6 (>60)
[2024-03-27 07:41] LABS: Hematocrit 24.1 % (38-53); Hemoglobin 7.9 g/dL (13.2-16.3); Mean Corpuscular Hemoglobin 26.6 pg (27-33); Mean Corpuscular Hgb Conc 32.7 g/dL (31-36); Mean Corpuscular Volume 81.3 fL (80-97); Red Blood Count 2.96 10^6/uL (4.06-5.63); Red Cell Distribution Width 16.8 % (12-17); White Blood Count 1.3 10^3/uL (3.6-10.2)
[2024-03-27 08:09] LABS: ABS Eosinophils 0.1 10^3/uL (0.0-0.5); ABS Lymphocytes 0.4 10^3/uL (1.0-4.8); ABS Monocytes 0.3 10^3/uL (0.0-1.1); ABS Neutrophils 0.5 10^3/uL (1.5-7.6); Eosinophil % 5.1 %; Lymphocyte % 33.7 %; Mean Platelet Volume 7.1 fL (7.5-11.2); Nucleated Red Blood Cells % 0.1 %/100WBC (0.0-0.8); Platelet Count 98 10^3/uL (150-450)
[2024-03-27] MEDS: DULoxetine DR 60 mg CAP PO SCH (08:48)
[2024-03-27] MEDS: Potassium Chlor 10 meq TAB PO ONE (08:48)
[2024-03-27] MEDS: Magnesium Sulf 4 GM/100 ML IV 4,000 MG/100 ML BAG IVPB ONE (08:57)
[2024-03-27 09:40] LABS: Activated Partial Thrombo Time 28.1 seconds (26.0-38.0); INR 1.44 (0.85-1.14)
[2024-03-27] MEDS: HYOSCYAMINE 0.375 MG PO SCH (13:09)
[2024-03-27] MEDS: LINACLOTIDE 145 MCG PO SCH (13:10)
[2024-03-27] MEDS: Saline NASAL SPRAY 0.65% BTL BOTH NARES PRN (13:26)
[2024-03-28] MEDS: LINACLOTIDE 145 MCG PO SCH (06:11)
[2024-03-28 06:36] LABS: Hematocrit 24.1 % (38-53); Hemoglobin 8.1 g/dL (13.2-16.3); Mean Corpuscular Hgb Conc 33.4 g/dL (31-36); Mean Corpuscular Volume 80.6 fL (80-97); Platelet Count 107 10^3/uL (150-450); Red Blood Count 2.99 10^6/uL (4.06-5.63); Red Cell Distribution Width 16.6 % (12-17); White Blood Count 1.8 10^3/uL (3.6-10.2)
[2024-03-28 06:56] LABS: ABS Eosinophils 0.1 10^3/uL (0.0-0.5); ABS Lymphocytes 0.5 10^3/uL (1.0-4.8); ABS Monocytes 0.4 10^3/uL (0.0-1.1); ABS Neutrophils 0.8 10^3/uL (1.5-7.6); Eosinophil % 5.8 %; Lymphocyte % 27.4 %
[2024-03-28 07:47] LABS: Calcium 8.4 mg/dL (8.6-10.3); Creatinine, Serum 0.67 mg/dL (0.67-1.17); Magnesium 1.7 mg/dL (1.9-2.7); Potassium 3.6 mmol/L (3.5-5.0); eGFR CKD-EPI 105.6 (>60)
[2024-03-28] MEDS: Magnesium Sulfate 2 gm BAG 2 GM/50 ML BAG IVPB ONE (10:30)
[2024-03-28] MEDS: Polyethylene Glycol 3350 17 GM PACKET PO PRN (16:10)
[2024-03-29 05:48] LABS: Hematocrit 24.8 % (38-53); Hemoglobin 8.3 g/dL (13.2-16.3); Mean Corpuscular Hgb Conc 33.3 g/dL (31-36); Mean Platelet Volume 6.8 fL (7.5-11.2); Platelet Count 128 10^3/uL (150-450); Red Blood Count 3.06 10^6/uL (4.06-5.63); Red Cell Distribution Width 16.9 % (12-17); White Blood Count 1.9 10^3/uL (3.6-10.2)
[2024-03-29 05:53] LABS: ABS Eosinophils 0.2 10^3/uL (0.0-0.5); ABS Lymphocytes 0.6 10^3/uL (1.0-4.8); ABS Monocytes 0.4 10^3/uL (0.0-1.1); ABS Neutrophils 0.7 10^3/uL (1.5-7.6); Lymphocyte % 32.4 %; Nucleated Red Blood Cells % 0.1 %/100WBC (0.0-0.8)
[2024-03-29 06:03] LABS: Calcium 8.9 mg/dL (8.6-10.3); Creatinine, Serum 0.7 mg/dL (0.67-1.17); Magnesium 1.8 mg/dL (1.9-2.7); Potassium 3.7 mmol/L (3.5-5.0); eGFR CKD-EPI 104.2 (>60)
[2024-03-29] MEDS: Potassium Chloride LIQUID 20 MEQ/15 ML LIQUID PO ONE (10:19)
[2024-03-30 06:05] LABS: Hematocrit 23.9 % (38-53); Hemoglobin 7.9 g/dL (13.2-16.3); Mean Corpuscular Hemoglobin 26.9 pg (27-33); Mean Corpuscular Hgb Conc 33.3 g/dL (31-36); Mean Corpuscular Volume 80.8 fL (80-97); Mean Platelet Volume 6.7 fL (7.5-11.2); Platelet Count 139 10^3/uL (150-450); Red Blood Count 2.96 10^6/uL (4.06-5.63); Red Cell Distribution Width 16.7 % (12-17); White Blood Count 1.7 10^3/uL (3.6-10.2)
[2024-03-30 06:13] LABS: Calcium 8.7 mg/dL (8.6-10.3); Creatinine, Serum 0.71 mg/dL (0.67-1.17); Magnesium 1.7 mg/dL (1.9-2.7); Potassium 3.7 mmol/L (3.5-5.0); eGFR CKD-EPI 103.7 (>60)
[2024-03-30 07:17] LABS: ABS Eosinophils 0.2 10^3/uL (0.0-0.5); ABS Lymphocytes 0.5 10^3/uL (1.0-4.8); ABS Monocytes 0.5 10^3/uL (0.0-1.1); ABS Neutrophils 0.6 10^3/uL (1.5-7.6); Eosinophil % 9.8 %; Lymphocyte % 29.2 %; Nucleated Red Blood Cells % 0.1 %/100WBC (0.0-0.8)
[2024-03-30] MEDS: Magnesium Sulfate 2 gm BAG 2 GM/50 ML BAG IVPB ONE (08:59)
[2024-03-30] MEDS: Potassium Chlor 10 meq TAB PO ONE (09:02)
[2024-03-30] MEDS: Magnesium Sulfate IV 1GM/100ML 1 GM/100 ML BAG IV ONE (10:13)
[2024-03-30] MEDS: Amoxicillin/Clavul 875/125 TAB (Augmentin 875 tab) PO SCH (20:55)
[2024-03-30 21:50] LABS: Anaplasma phagocytophilum Negative (Negative); B. miyamotoi PCR, B Negative (Negative); Babesia divergens/MO-1 Negative (Negative); Babesia ducani Negative (Negative); Ehrlichia chaffeensis Negative (Negative); Ehrlichia ewingii/canis Negative (Negative); Ehrlichia muris eauclairensis Negative (Negative)
[2024-03-31 05:54] LABS: Hematocrit 25.1 % (38-53); Hemoglobin 8.4 g/dL (13.2-16.3); Mean Corpuscular Hemoglobin 27.2 pg (27-33); Mean Corpuscular Hgb Conc 33.5 g/dL (31-36); Mean Platelet Volume 6.8 fL (7.5-11.2); Platelet Count 149 10^3/uL (150-450); Red Cell Distribution Width 16.8 % (12-17); White Blood Count 4.8 10^3/uL (3.6-10.2)
[2024-03-31 06:25] LABS: Calcium 9.3 mg/dL (8.6-10.3); Creatinine, Serum 0.67 mg/dL (0.67-1.17); Magnesium 1.9 mg/dL (1.9-2.7); Potassium 3.9 mmol/L (3.5-5.0); eGFR CKD-EPI 105.6 (>60)
[2024-03-31 06:26] LABS: ABS Eosinophils 0.2 10^3/uL (0.0-0.5); ABS Lymphocytes 0.7 10^3/uL (1.0-4.8); ABS Monocytes 1.4 10^3/uL (0.0-1.1); ABS Neutrophils 2.4 10^3/uL (1.5-7.6); ABS Nucleated RBC 0.01 10^3/ul; Lymphocyte % 15.7 %; Nucleated Red Blood Cells % 0.2 %/100WBC (0.0-0.8); RBC Morphology Normal (Normal)
[2024-03-31 13:31] VITALS: BP 92/62
== END 2024-03-31 16:30 | disposition home or self-care (01) | DRG 808 ==
LOC: ED 01:27 → EDHOLD 01:27 → MEDTELE 22:25 → SUATTDRO 03-27 14:05
PROVIDERS: ADMIT Student in an Organized Health Care Education/Training Program; ATTEND Student in an Organized Health Care Education/Training Program

== ENCOUNTER 2024-04-14 13:44 | Inpatient (IN) ==
[2024-04-14] MEDS: Lactated Ringers SEPSIS* BAG 2,050 ML IV ONE (15:20)
[2024-04-14] MEDS: Acetaminophen IV 1 GM/100ML 1,000 MG/100 ML BAG IV ONE ×2 (15:22→21:33)
[2024-04-14 15:29] LABS: ABS Lymphocytes 0.1 10^3/uL (1.0-4.8); ABS Neutrophils 2.3 10^3/uL (1.5-7.6); Eosinophil % 0.3 %; Hematocrit 27.3 % (38-53); Hemoglobin 8.9 g/dL (13.2-16.3); Lymphocyte % 5.2 %; Mean Corpuscular Hemoglobin 26.3 pg (27-33); Mean Corpuscular Hgb Conc 32.5 g/dL (31-36); Mean Corpuscular Volume 80.9 fL (80-97); Mean Platelet Volume 7.1 fL (7.5-11.2); Nucleated Red Blood Cells % 0.1 %/100WBC (0.0-0.8); Platelet Count 173 10^3/uL (150-450); Red Blood Count 3.38 10^6/uL (4.06-5.63); White Blood Count 2.5 10^3/uL (3.6-10.2)
[2024-04-14] MEDS: Cefepime 2 GM in Dextrose 2 GM/50 ML BAG IV ONE (15:36)
[2024-04-14 15:44] LABS: INR 1.36 (0.85-1.14)
[2024-04-14 16:18] LABS: Albumin 3.7 g/dL (3.2-5.2); Albumin/Globulin Ratio 1.1 (1-3); C Reactive Protein 70.66 mg/L (<8.01); Calcium 9.3 mg/dL (8.6-10.3); Creatinine, Serum 0.82 mg/dL (0.67-1.17); Globulin 3.5 g/dL (2-4); Potassium 4.4 mmol/L (3.5-5.0); Total Protein 7.2 g/dL (6.4-8.9); eGFR CKD-EPI 99.3 (>60)
[2024-04-14 17:15] LABS: High Sensitivity Troponin 1 Hr 14 pg/mL (<20)
[2024-04-14 17:35] LABS: Urine Appearance Clear; Urine Bilirubin Negative (Negative); Urine Blood Negative (Negative); Urine Color Yellow; Urine Glucose Negative (Negative); Urine Ketones Negative (Negative); Urine Nitrite Negative (Negative); Urine Protein Negative (Negative); Urine Specific Gravity 1.017 (1.002-1.030); Urine Urobilinogen Negative (Negative); Urine pH 6.5 (5.0-8.0)
[2024-04-14] MEDS: Iohexol 300 (CONTRAST) 10 ML SDV IV ONE (19:01)
[2024-04-14] MEDS: HYDROmorphone 1 MG/1 ML SYRINGE IV ONE (21:31)
[2024-04-14] MEDS: Lactated Ringers 1000 ml BAG 1,000 ML IV ONE (21:34)
[2024-04-14 22:23] LABS: Hepatitis B Surface Antigen Nonreactive (Nonreactive)
[2024-04-14 22:28] LABS: Hepatitis A Ab IgM Negative (Negative); Hepatitis B Core IgM Nonreactive (Nonreactive)
[2024-04-15] MEDS: Lactated Ringers 1000 ml BAG 1,000 ML IV SCH (00:27)
[2024-04-15] MEDS ORDERED: HYOSCYAMINE 0.375 MG PO PRN (01:01)
[2024-04-15 01:41] LABS: Hepatitis C Antibody Negative (Negative)
[2024-04-15] MEDS ORDERED: Zosyn per Pharmacy NOTE FOLLOW UP SCH (02:00)
[2024-04-15] MEDS ORDERED: Vancomycin per Pharmacy 1 EA NOTE FOLLOW UP PRN (02:02)
[2024-04-15] MEDS: Vancomycin 1,250 MG in NS 0.9% 250 ml 250 ML IVPB ONE (02:26)
[2024-04-15] MEDS: Piperacillin/Tazobac 3.375 BAG 3.375 GM/100 ML BAG IV ONE (02:26)
[2024-04-15] MEDS ORDERED: Cefepime 2 GM in Dextrose 2 GM/50 ML BAG IV SCH (03:00)
[2024-04-15] MEDS: ZOSYN 3.375 GM Q8H per EXTENDED INFUSION IV SCH (05:54)
[2024-04-15] MEDS: Enoxaparin 40 MG/0.4 ML SYR SUBCUT SCH (05:59)
[2024-04-15 06:10] LABS: Hematocrit 23.9 % (38-53); Hemoglobin 7.9 g/dL (13.2-16.3); Mean Corpuscular Hemoglobin 26.8 pg (27-33); Mean Corpuscular Hgb Conc 33.3 g/dL (31-36); Mean Corpuscular Volume 80.7 fL (80-97); Mean Platelet Volume 7.4 fL (7.5-11.2); Platelet Count 104 10^3/uL (150-450); Red Blood Count 2.96 10^6/uL (4.06-5.63); White Blood Count 1.7 10^3/uL (3.6-10.2)
[2024-04-15 06:45] LABS: Calcium 8.6 mg/dL (8.6-10.3); Creatinine, Serum 0.77 mg/dL (0.67-1.17); Direct Bilirubin 0.6 mg/dL (0.03-0.18); Indirect Bilirubin 0.7 mg/dL (0.3-1.0); Potassium 4.1 mmol/L (3.5-5.0); Total Bilirubin 1.3 mg/dL (0.2-1.0); eGFR CKD-EPI 101.2 (>60)
[2024-04-15 07:09] LABS: ABS Eosinophils 0.1 10^3/uL (0.0-0.5); ABS Lymphocytes 0.2 10^3/uL (1.0-4.8); ABS Monocytes 0.1 10^3/uL (0.0-1.1); ABS Neutrophils 1.2 10^3/uL (1.5-7.6); Eosinophil % 3.5 %; Nucleated Red Blood Cells % 0.2 %/100WBC (0.0-0.8)
[2024-04-15 12:12] LABS: Magnesium 1.4 mg/dL (1.9-2.7)
[2024-04-15] MEDS: DAPTOmycin SDV 750 MG in NS 0.9% 50 ML 50 ML IVPB SCH (12:35)
[2024-04-15] MEDS ORDERED: Vancomycin 1,250 MG in NS 0.9% 250 ml 250 ML IVPB SCH (14:00)
[2024-04-15] MEDS ORDERED: Polyethylene Glycol 3350 17 GM PACKET PO PRN (15:58)
[2024-04-15] MEDS: DULoxetine DR 60 mg CAP PO SCH (22:38)
[2024-04-16 06:18] LABS: Hematocrit 22.4 % (38-53); Hemoglobin 7.5 g/dL (13.2-16.3); Mean Corpuscular Hemoglobin 26.9 pg (27-33); Mean Corpuscular Hgb Conc 33.6 g/dL (31-36); Mean Corpuscular Volume 80.3 fL (80-97); Red Blood Count 2.79 10^6/uL (4.06-5.63)
[2024-04-16 06:44] LABS: Calcium 8.2 mg/dL (8.6-10.3); Creatinine, Serum 0.76 mg/dL (0.67-1.17); Potassium 3.5 mmol/L (3.5-5.0); Total Bilirubin 1.1 mg/dL (0.2-1.0); eGFR CKD-EPI 101.6 (>60)
[2024-04-16 07:33] LABS: Mean Platelet Volume 7.7 fL (7.5-11.2); Platelet Count 81 10^3/uL (150-450)
[2024-04-16 07:34] LABS: ABS Lymphocytes 0.3 10^3/uL (1.0-4.8); ABS Monocytes 0.5 10^3/uL (0.0-1.1); ABS Neutrophils 1.1 10^3/uL (1.5-7.6); Anisocytosis 1+; Eosinophil % 1.9 %; Lymphocyte % 16.6 %
[2024-04-16] MEDS: KCL 20 MEQ/100 ML IVPREMIX 20 MEQ/100 ML BAG IV ONE (08:55)
[2024-04-16 09:06] LABS: Magnesium 1.5 mg/dL (1.9-2.7)
[2024-04-16] MEDS: NS 0.9% 1000 ml BAG 1,000 ML IV SCH (11:00)
[2024-04-16] MEDS: Magnesium Sulfate 2 gm BAG 2 GM/50 ML BAG IVPB ONE (11:00)
[2024-04-16] MEDS ORDERED: Vancomycin Trough Check NOTE FOLLOW UP ONE (13:30)
[2024-04-17 07:08] LABS: Hematocrit 21.7 % (38-53); Hemoglobin 7.3 g/dL (13.2-16.3); Mean Corpuscular Hemoglobin 26.9 pg (27-33); Mean Corpuscular Hgb Conc 33.8 g/dL (31-36); Mean Corpuscular Volume 79.5 fL (80-97); Red Blood Count 2.73 10^6/uL (4.06-5.63); Red Cell Distribution Width 18.4 % (12-17); White Blood Count 3.7 10^3/uL (3.6-10.2)
[2024-04-17 07:38] LABS: Albumin 2.7 g/dL (3.2-5.2); Calcium 7.8 mg/dL (8.6-10.3); Creatinine, Serum 0.66 mg/dL (0.67-1.17); Globulin 2.8 g/dL (2-4); Magnesium 1.5 mg/dL (1.9-2.7); Potassium 3.3 mmol/L (3.5-5.0); Total Bilirubin 0.8 mg/dL (0.2-1.0); Total Protein 5.5 g/dL (6.4-8.9)
[2024-04-17 08:22] LABS: ABS Lymphocytes 0.4 10^3/uL (1.0-4.8); ABS Monocytes 0.9 10^3/uL (0.0-1.1); ABS Neutrophils 2.4 10^3/uL (1.5-7.6); Anisocytosis 1+; Eosinophil % 1.3 %; Hypochromasia 1+; Lymphocyte % 11.8 %; Mean Platelet Volume 7.7 fL (7.5-11.2); Microcytosis 1+; Platelet Count 82 10^3/uL (150-450)
[2024-04-17] MEDS: Magnesium Sulfate 2 gm BAG 2 GM/50 ML BAG IVPB ONE (10:58)
[2024-04-17] MEDS: KCL 20 MEQ/100 ML IVPREMIX 20 MEQ/100 ML BAG IV ONE (10:58)
[2024-04-17] MEDS: Magnesium Sulfate IV 1GM/100ML 1 GM/100 ML BAG IV ONE (11:47)
[2024-04-17] MEDS ORDERED: Cefepime 2 GM in Dextrose 2 GM/50 ML BAG IV SCH (12:00)
[2024-04-17] MEDS: Cefepime 2 GM in Dextrose 2 GM/50 ML BAG IV SCH (14:24)
[2024-04-17] MEDS: Furosemide 40 mg/4 ml IV VIAL IV SLOW PU ONE (15:57)
[2024-04-18 08:44] LABS: Hematocrit 23.5 % (38-53); Mean Corpuscular Hemoglobin 26.2 pg (27-33); Mean Corpuscular Hgb Conc 33.9 g/dL (31-36); Mean Corpuscular Volume 77.3 fL (80-97); Mean Platelet Volume 7.4 fL (7.5-11.2); Platelet Count 90 10^3/uL (150-450); Red Blood Count 3.04 10^6/uL (4.06-5.63); Red Cell Distribution Width 18.6 % (12-17); White Blood Count 3.6 10^3/uL (3.6-10.2)
[2024-04-18 08:54] LABS: ABS Eosinophils 0.1 10^3/uL (0.0-0.5); ABS Lymphocytes 0.3 10^3/uL (1.0-4.8); ABS Monocytes 0.6 10^3/uL (0.0-1.1); ABS Neutrophils 2.6 10^3/uL (1.5-7.6); Anisocytosis 1+; Eosinophil % 1.7 %; Lymphocyte % 8.8 %; Microcytosis 1+
[2024-04-18 09:00] LABS: Albumin 2.7 g/dL (3.2-5.2); Calcium 7.9 mg/dL (8.6-10.3); Creatinine, Serum 0.72 mg/dL (0.67-1.17); Globulin 2.8 g/dL (2-4); Magnesium 1.5 mg/dL (1.9-2.7); Potassium 3.1 mmol/L (3.5-5.0); Total Bilirubin 1.2 mg/dL (0.2-1.0); Total Protein 5.5 g/dL (6.4-8.9); eGFR CKD-EPI 103.3 (>60)
[2024-04-18] MEDS: Potassium Chloride LIQUID 20 MEQ/15 ML LIQUID PO ONE ×3 (12:12→15:44)
[2024-04-18] MEDS: KCL 20 MEQ/100 ML IVPREMIX 20 MEQ/100 ML BAG IV ONE (12:12)
[2024-04-18] MEDS: Magnesium Sulf 4 GM/100 ML IV 4,000 MG/100 ML BAG IVPB ONE (12:16)
[2024-04-18] MEDS: NS 0.9% 1000 ml BAG 1,000 ML IV ONE (15:42)
[2024-04-19 08:11] LABS: Anion Gap 8 mmol/L (2-16); Blood Urea Nitrogen 10 mg/dL (6-24); CO2 Carbon Dioxide 18 mmol/L (22-32); Calcium 6.1 mg/dL (8.6-10.3); Chloride 107 mmol/L (101-111); Creatinine, Serum 0.43 mg/dL (0.67-1.17); Glucose 100 mg/dL (70-100); Magnesium 1.4 mg/dL (1.9-2.7); Sodium 133 mmol/L (135-145); eGFR CKD-EPI 120.7 (>60)
[2024-04-19 08:31] LABS: ABS Basophils 0.1 10^3/uL (0.0-0.1); ABS Eosinophils 0.2 10^3/uL (0.0-0.5); ABS Lymphocytes 0.5 10^3/uL (1.0-4.8); ABS Monocytes 1.1 10^3/uL (0.0-1.1); ABS Neutrophils 4.4 10^3/uL (1.5-7.6); Hematocrit 23.4 % (38-53); Hemoglobin 7.8 g/dL (13.2-16.3); Lymphocyte % 7.6 %; Mean Corpuscular Hemoglobin 26.3 pg (27-33); Mean Corpuscular Hgb Conc 33.5 g/dL (31-36); Mean Corpuscular Volume 78.6 fL (80-97); Mean Platelet Volume 7.5 fL (7.5-11.2); Platelet Count 96 10^3/uL (150-450); Red Blood Count 2.97 10^6/uL (4.06-5.63); Red Cell Distribution Width 18.8 % (12-17); White Blood Count 6.3 10^3/uL (3.6-10.2)
[2024-04-19] MEDS: Magnesium Sulfate 2 gm BAG 2 GM/50 ML BAG IVPB ONE (08:42)
[2024-04-19 09:38] VITALS: BP 148/74
[2024-04-19] MEDS: CALCIUM GLUCONATE 1GM/50ML NS 1 GM/50 ML BAG IV SCH (09:58)
[2024-04-19] MEDS: Furosemide 40 mg/4 ml IV VIAL IV SLOW PU ONE (10:01)
[2024-04-19] MEDS: Furosemide 20 mg/2 ml IV VIAL IV SLOW PU ONE (10:16)
[2024-04-19] MEDS: CALCIUM GLUCONATE 1GM/50ML NS 1 GM/50 ML BAG IV ONE (10:16)
[2024-04-19] MEDS ORDERED: Magnesium Sulfate IV 1GM/100ML 1 GM/100 ML BAG IV ONE (10:19)
[2024-04-19 10:41] LABS: Albumin 2.8 g/dL (3.2-5.2); Direct Bilirubin 0.5 mg/dL (0.03-0.18); Globulin 2.8 g/dL (2-4); Indirect Bilirubin 0.6 mg/dL (0.3-1.0); Total Bilirubin 1.1 mg/dL (0.2-1.0); Total Protein 5.6 g/dL (6.4-8.9)
== END 2024-04-19 11:30 | disposition short-term general hospital (02) | DRG 919 ==
LOC: ED 13:44 → EDHOLD 13:44 → OBSVTOIN 22:57 → MEDTELE 23:09
PROVIDERS: ADMIT Internal Medicine; ATTEND Internal Medicine